=== PATIENT | female | born 1970 ===

== ENCOUNTER 2024-03-22 05:39 | Day surgery (SDC) | payer OTHER ==
[2024-03-14 12:32] LABS: PH,URINE 5.5 (5.0-8.0); URINE APPEARANCE Clear; URINE BILIRRUBIN Negative (NEGATIVE); URINE BLOOD Negative; URINE COLOR Yellow; URINE LEUKOCYTE Negative; URINE NITRATE Negative; URINE PROTEIN Negative (NEGATIVE); URINE UROBILINOGEN 0.2 E.U./dl
[2024-03-14 12:39] LABS: URINE BACTERIA 2.5 uL (0.0-1933); URINE EPITHELIAL CELLS 0.7 uL (0.0-38.8); URINE GLUCOSE >=1000 MG/DL (NEGATIVE); URINE RBC 0.9 uL (0.0-20.8); URINE WBC 0.6 uL (0.0-23.2)
[~2024-03-22] VITALS: Ht 165.1 cm; Wt 61.2 kg
[~2024-03-22 05:39] MED LIST: CRESTOR40 MG PO; FARXIGA10 MG PO
[2024-03-22] MEDS ORDERED: LIDOCAINE MM ONE (07:30)
[2024-03-22] MEDS ORDERED: CEFTRIAXONE SODIUM 2,000 MG VIAL IV ONE (07:30)
[2024-03-22] MEDS ORDERED: METRONIDAZOLE/SODIUM CHLORIDE 500 MG/100 ML PIGGYBACK IV ONE ×2 (07:30)
[2024-03-22] MEDS ORDERED: HEMOSTATIC MATRIX 1 KIT KIT TOP ONE (07:30)
[2024-03-22] MEDS ORDERED: POVIDONE-IODINE 118 ML BOTT TOP ONE (07:30)
[2024-03-22] MEDS ORDERED: DIBUCAINE 30 GM TUBE RECTAL ONE (07:30)
[2024-03-22] MEDS ORDERED: BUPIVACAINE HCL 30 ML VIAL IV ONE (07:30)
[2024-03-22] MEDS ORDERED: [UNRECOGNIZED DRUG - OTHER] MM ONE (07:30)
[2024-03-22] MEDS ORDERED: TRAM1TAB98 PO (08:28)
[2024-03-22] MEDS ORDERED: COLACE100 MG PO (08:28)
== END 2024-03-22 12:45 | disposition home or self-care (01) ==
LOC: CIR.AMB 05:39
PROVIDERS: ATTEND Surgery
DX: K60.3 Anal fistula (principal); K62.89 Other specified diseases of anus and rectum; Z91.013 Allergy to seafood; E11.9 Type 2 diabetes mellitus without complications; R06.81 Apnea, not elsewhere classified